=== PATIENT | female | born 1965 | race Caucasian/White ===

== ENCOUNTER 2017-02-28 12:18 | Emergency (ER) | payer SELFPAY ==
[~2017-02-28] VITALS: Ht 152.4 cm; Wt 113.5 kg
[~2017-02-28 12:18] MED LIST: ATEN50TA PO; LEVO100T4 PO; TRAM50TA4 PO; TYL3 PO
[2017-02-28] MEDS ORDERED: ASPI1TAB7 PO (12:23)
[2017-02-28] MEDS ORDERED: SODIUM CHLORIDE 0.9% 1,000 ML IV ONE (12:45)
[2017-02-28] MEDS ORDERED: MECLIZINE HCL 25 MG TABLET PO ONE (12:45)
[2017-02-28] MEDS ORDERED: ONDANSETRON HCL 4 MG/2 ML VIAL IVP ONE (12:45)
[2017-02-28 14:08] VITALS: BP 139/69
== END 2017-02-28 14:28 | disposition home or self-care (01) ==
LOC: EMS 12:20
DX: R42 Dizziness and giddiness (principal); I10 Essential (primary) hypertension; Z91.011 Allergy to milk products; Z91.013 Allergy to seafood
CPT/HCPCS: 96361; 96374; 99284; J2405; J7030

== ENCOUNTER 2017-12-31 06:19 | Emergency (ER) | payer OTHER ==
[~2017-12-31] VITALS: Ht 154.9 cm; Wt 104.5 kg
[~2017-12-31 06:19] MED LIST changes: +ASPI-988 PO; -TRAM50TA4 PO; -TYL3 PO
[2017-12-31] MEDS ORDERED: LEVO112T4 PO (06:35)
[2017-12-31] MEDS ORDERED: LISI-661 PO (06:35)
[2017-12-31] MEDS ORDERED: MECLIZINE HCL 25 MG TABLET PO ONE (07:00)
[2017-12-31] MEDS ORDERED: SODIUM CHLORIDE 0.9% 1,000 ML IV ONE (07:00)
[2017-12-31] MEDS ORDERED: ONDANSETRON HCL 4 MG/2 ML VIAL IVP ONE (07:00)
[2017-12-31 07:34] LABS: BASOPHILS % (AUTO) 0.6 % (0.0-2.0); EOSINOPHILS % (AUTO) 1.3 % (1.0-6.0); HEMATOCRIT 37.4 % (36-46); HEMOGLOBIN 12.5 g/dL (12.0-16.0); LYMPHOCYTES # (AUTO) 1.1 K/uL (1.0-4.8); LYMPHOCYTES % (AUTO) 16.3 % (22.0-44.0); MEAN CORPUSCULAR HGB CONC 33.3 G/dL (31.0-37.0); MEAN CORPUSCULAR VOLUME 93 fL (80-100); MONOCYTES # (AUTO) 0.4 K/uL (0.1-1.0); MONOCYTES % (AUTO) 5.2 % (2.0-9.0); NEUTROPHILS # (AUTO) 5.4 K/uL (1.8-7.7); NEUTROPHILS % (AUTO) 76.6 % (40.0-70.0); PLATELET COUNT (AUTO) 124 K/uL (150-450); RED BLOOD CELL COUNT(AUTO) 4.03 MIL/uL (4.00-5.20); RED CELL DISTRIBUTION WIDTH 12.9 % (11.5-14.5)
[2017-12-31 07:46] LABS: ANION GAP 12 mmol/L (8-16); CARBON DIOXIDE 24 mmol/L (22-29); CHLORIDE 107 mmol/L (98-107); CREATININE 0.67 mg/dL (0.60-1.30); GLOMERULAR FILTR. RATE CALC > 60 mL/min (>60); GLUCOSE,RANDOM 173 mg/dL (70-110); SODIUM SERUM 143 mmol/L (136-145); UREA NITROGEN, BLOOD 15 mg/dL (7-18)
[2017-12-31 08:05] VITALS: BP 138/63
[2017-12-31] MEDS ORDERED: DiphenhydrAMINE HCL 50 MG/ML VIAL IVP ONE (08:30)
[2017-12-31] MEDS ORDERED: METOCLOPRAMIDE HCL 5 MG/ML 2 ML VIAL IVP ONE (08:30)
== END 2017-12-31 09:28 | disposition home or self-care (01) ==
LOC: EMS 06:20
DX: R42 Dizziness and giddiness (principal); R11.2 Nausea with vomiting, unspecified; E03.9 Hypothyroidism, unspecified; I10 Essential (primary) hypertension; G43.909 Migraine, unspecified, not intractable, without status migrainosus
CPT/HCPCS: 36415; 80048; 85025; 96361; 96374; 96375; 99285; J1200; J2405; J2765; J7030

== ENCOUNTER 2018-10-27 20:49 | Emergency (ER) | payer OTHER ==
[~2018-10-27] VITALS: Ht 154.9 cm; Wt 111.4 kg
[~2018-10-27 20:49] MED LIST changes: -ASPI-988 PO; -ATEN50TA PO; -LEVO100T4 PO; +LEVO112T4 PO; +LISI-661 PO
[2018-10-27 21:43] LABS: BASOPHILS % (AUTO) 0.7 % (0.0-2.0); EOSINOPHILS % (AUTO) 1.7 % (1.0-6.0); HEMATOCRIT 37.1 % (36-46); HEMOGLOBIN 12.4 g/dL (12.0-16.0); LYMPHOCYTES # (AUTO) 2.2 K/uL (1.0-4.8); LYMPHOCYTES % (AUTO) 28.4 % (22.0-44.0); MEAN CORPUSCULAR HGB CONC 33.5 G/dL (31.0-37.0); MEAN CORPUSCULAR VOLUME 92 fL (80-100); MONOCYTES # (AUTO) 0.6 K/uL (0.1-1.0); MONOCYTES % (AUTO) 7.3 % (2.0-9.0); NEUTROPHILS # (AUTO) 4.7 K/uL (1.8-7.7); NEUTROPHILS % (AUTO) 61.9 % (40.0-70.0); PLATELET COUNT (AUTO) 166 K/uL (150-450); RED BLOOD CELL COUNT(AUTO) 4.02 MIL/uL (4.00-5.20); RED CELL DISTRIBUTION WIDTH 13.1 % (11.5-14.5)
[2018-10-27 21:47] LABS: ANION GAP 10 mmol/L (8-16); CALCIUM, TOTAL 10.3 mg/dL (8.8-10.5); CARBON DIOXIDE 25 mmol/L (22-29); CHLORIDE 103 mmol/L (98-107); CREATININE 0.59 mg/dL (0.60-1.30); GLOMERULAR FILTR. RATE CALC > 60 mL/min (>60); GLUCOSE,RANDOM 173 mg/dL (70-110); POTASSIUM 4.2 mmol/L (3.5-5.1); SODIUM SERUM 138 mmol/L (136-145); UREA NITROGEN, BLOOD 19 mg/dL (7-18)
[2018-10-27 21:49] LABS: ALANINE AMINOTRANSFERASE 29 U/L (12-78); ALBUMIN 3.3 g/dL (3.4-5.0); ALKALINE PHOSPHATASE 128 U/L (46-116); ASPARTATE AMINOTRANSFERASE 16 U/L (15-37); BILIRUBIN,TOTAL 0.2 mg/dL (0.1-1.0); TOTAL PROTEIN, SERUM 7.4 g/dL (6.4-8.2)
[2018-10-27] MEDS ORDERED: KETOROLAC TROMETHAMINE 30 MG/ML VIAL IVP ONE (22:30)
[2018-10-27] MEDS ORDERED: KETOROLAC TROMETHAMINE 60 MG/2 ML VIAL IM ONE (22:45)
[2018-10-27 23:11] VITALS: BP 162/84
== END 2018-10-27 23:16 | disposition home or self-care (01) ==
LOC: EMS 20:49
DX: R07.89 Other chest pain (principal); I10 Essential (primary) hypertension; E03.9 Hypothyroidism, unspecified; G43.909 Migraine, unspecified, not intractable, without status migrainosus; Z91.011 Allergy to milk products; Z91.013 Allergy to seafood; Z79.899 Other long term (current) drug therapy
CPT/HCPCS: 36415; 71045; 80053; 84484; 85025; 93005; 96372; 99284; J1885

== ENCOUNTER 2019-08-20 10:41 | Emergency (ER) | payer OTHER ==
[~2019-08-20] VITALS: Ht 154.9 cm; Wt 110.5 kg
[2019-08-20] MEDS ORDERED: ONDANSETRON HCL 4 MG/2 ML VIAL IM ONE (11:45)
[2019-08-20] MEDS ORDERED: MECLIZINE HCL 25 MG TABLET PO ONE (11:45)
[2019-08-20 11:53] LABS: BASOPHILS % (AUTO) 0.5 % (0.0-2.0); EOSINOPHILS % (AUTO) 1.4 % (1.0-6.0); HEMOGLOBIN 13.3 g/dL (12.0-16.0); LYMPHOCYTES # (AUTO) 1.5 K/uL (1.0-4.8); LYMPHOCYTES % (AUTO) 21.9 % (22.0-44.0); MEAN CORPUSCULAR HEMOGLOBIN 31.2 pg (26.0-34.0); MEAN CORPUSCULAR HGB CONC 33.2 G/dL (31.0-37.0); MEAN CORPUSCULAR VOLUME 94 fL (80-100); MONOCYTES # (AUTO) 0.4 K/uL (0.1-1.0); MONOCYTES % (AUTO) 5.9 % (2.0-9.0); NEUTROPHILS # (AUTO) 4.7 K/uL (1.8-7.7); NEUTROPHILS % (AUTO) 70.3 % (40.0-70.0); PLATELET COUNT (AUTO) 157 K/uL (150-450); RED BLOOD CELL COUNT(AUTO) 4.24 MIL/uL (4.00-5.20); RED CELL DISTRIBUTION WIDTH 13.2 % (11.5-14.5)
[2019-08-20 12:10] LABS: ANION GAP 6 mmol/L (8-16); CALCIUM, TOTAL 11.4 mg/dL (8.8-10.5); CARBON DIOXIDE 28 mmol/L (22-29); CHLORIDE 103 mmol/L (98-107); CREATININE 0.64 mg/dL (0.60-1.30); GLOMERULAR FILTR. RATE CALC > 60 mL/min (>60); GLUCOSE,RANDOM 155 mg/dL (70-110); POTASSIUM 4.5 mmol/L (3.5-5.1); SODIUM SERUM 137 mmol/L (136-145); UREA NITROGEN, BLOOD 19 mg/dL (7-18)
[2019-08-20 12:16] LABS: ALANINE AMINOTRANSFERASE 29 U/L (12-78); ALBUMIN 3.7 g/dL (3.4-5.0); ALKALINE PHOSPHATASE 127 U/L (46-116); ASPARTATE AMINOTRANSFERASE 13 U/L (15-37); BILIRUBIN,TOTAL 0.3 mg/dL (0.1-1.0); THYROID STIMULATING HORMONE 2.36 uIU/mL (0.36-3.74); TOTAL PROTEIN, SERUM 7.6 g/dL (6.4-8.2)
[2019-08-20 13:30] LABS: GLUCOSE,POINT OF CARE 130 MG/DL (70-110)
[2019-08-20 13:40] LABS: BILIRUBIN,URINE NEGATIVE (NEGATIVE); GLUCOSE, URINE (UA) NEGATIVE (NEGATIVE); KETONES,URINE NEGATIVE (NEGATIVE); LEUKOCYTE ESTERASE ,URINE NEGATIVE (NEGATIVE); NITRATE,URINE NEGATIVE (NEGATIVE); OCCULT BLOOD,URINE NEGATIVE (NEGATIVE); PH,URINE 7.5 (5.0-8.0); PROTEIN,URINE NEGATIVE (NEGATIVE)
[2019-08-20 13:41] LABS: APPEARANCE,URINE HAZY (CLEAR)
[2019-08-20 15:11] VITALS: BP 140/68
== END 2019-08-20 15:17 | disposition home or self-care (01) ==
LOC: EMS 10:42
DX: R11.2 Nausea with vomiting, unspecified (principal); R42 Dizziness and giddiness; E03.9 Hypothyroidism, unspecified; I10 Essential (primary) hypertension; G43.909 Migraine, unspecified, not intractable, without status migrainosus; Z79.899 Other long term (current) drug therapy; Z91.011 Allergy to milk products; Z91.013 Allergy to seafood
CPT/HCPCS: 36415; 80053; 81003; 82962; 84443; 85025; 93005; 96372; 99284; J2405; 82948

== ENCOUNTER 2021-10-02 09:07 | Emergency (ER) | payer OTHER ==
[~2021-10-02] VITALS: Ht 154.9 cm; Wt 106.8 kg
[~2021-10-02 09:07] MED LIST changes: -LISI-661 PO; +LISI-893 PO
[2021-10-02] MEDS ORDERED: KETOROLAC TROMETHAMINE 30 MG/ML VIAL IM ONE (09:30)
[2021-10-02] MEDS ORDERED: LIDOCAINE 5% TRANSDERMAL PATCH TD ONE (09:30)
[2021-10-02] MEDS ORDERED: OxyCODONE HCL/ACETAMINOPHEN 5-325 MG TABLET PO ONE (10:30)
[2021-10-02 11:33] VITALS: BP 159/79
== END 2021-10-02 12:01 | disposition home or self-care (01) ==
LOC: EMS 09:09
DX: M54.42 Lumbago with sciatica, left side (principal); E11.9 Type 2 diabetes mellitus without complications; I10 Essential (primary) hypertension; E03.9 Hypothyroidism, unspecified; G43.909 Migraine, unspecified, not intractable, without status migrainosus
CPT/HCPCS: 82962; 96372; 99283; J1885

== ENCOUNTER 2022-07-26 00:03 | Emergency (ER) | payer OTHER ==
[~2022-07-26] VITALS: Ht 154.9 cm; Wt 106.8 kg
[2022-07-26] MEDS ORDERED: AMLO-257 PO (00:17)
[2022-07-26] MEDS ORDERED: ATOR40TA28 PO (00:17)
[2022-07-26] MEDS ORDERED: METF-1211 PO (00:17)
[2022-07-26 00:21] LABS: GLUCOSE,POINT OF CARE 223 MG/DL (70-110)
[2022-07-26] MEDS ORDERED: IBUPROFEN 600 MG TABLET PO ONE (02:00)
[2022-07-26 02:45] LABS: BASOPHILS % (AUTO) 0.5 % (0.0-2.0); EOSINOPHILS % (AUTO) 2.6 % (1.0-6.0); HEMATOCRIT 37.8 % (36-46); HEMOGLOBIN 12.5 g/dL (12.0-16.0); LYMPHOCYTES # (AUTO) 1.2 K/uL (1.0-4.8); LYMPHOCYTES % (AUTO) 13.9 % (22.0-44.0); MEAN CORPUSCULAR HEMOGLOBIN 29.6 pg (26.0-34.0); MEAN CORPUSCULAR VOLUME 90 fL (80-100); MONOCYTES # (AUTO) 0.6 K/uL (0.1-1.0); MONOCYTES % (AUTO) 6.7 % (2.0-9.0); NEUTROPHILS # (AUTO) 6.4 K/uL (1.8-7.7); NEUTROPHILS % (AUTO) 76.3 % (40.0-70.0); PLATELET COUNT (AUTO) 167 K/uL (150-450); RED BLOOD CELL COUNT(AUTO) 4.21 MIL/uL (4.00-5.20); RED CELL DISTRIBUTION WIDTH 13.8 % (11.5-14.5)
[2022-07-26 03:05] LABS: ANION GAP 6 mmol/L (8-16); CALCIUM, TOTAL 8.9 mg/dL (8.8-10.5); CARBON DIOXIDE 31 mmol/L (22-29); CHLORIDE 100 mmol/L (98-107); GLOMERULAR FILTR. RATE CALC > 60 mL/min (>60); GLUCOSE,RANDOM 185 mg/dL (70-110); SODIUM SERUM 137 mmol/L (136-145); UREA NITROGEN, BLOOD 22 mg/dL (7-18)
[2022-07-26 03:11] LABS: ALANINE AMINOTRANSFERASE 28 U/L (12-78); ALBUMIN 3.7 g/dL (3.4-5.0); ALKALINE PHOSPHATASE 115 U/L (46-116); ASPARTATE AMINOTRANSFERASE 14 U/L (15-37); BILIRUBIN,TOTAL 0.3 mg/dL (0.1-1.0); C-REACTIVE PROTEIN QUANT 1.47 mg/dL (0.00-0.30); TOTAL PROTEIN, SERUM 7.7 g/dL (6.4-8.2)
[2022-07-26 03:56] LABS: ERYTHROCYTE SEDIMENTATION RATE 23 MM/HR (0-20)
[2022-07-26 04:12] VITALS: BP 158/78
[2022-07-26] MEDS ORDERED: IBUP-2070 PO (04:14)
[2022-07-26] MEDS ORDERED: LISI40TA9 PO (19:56)
[2022-07-26] MEDS ORDERED: ASPI-1444 PO (19:56)
[2022-07-26] MEDS ORDERED: PLEC3TAB2 PO (19:56)
== END 2022-07-26 04:36 | disposition home or self-care (01) ==
LOC: EMS 00:05
DX: S86.111A Strain of other muscle(s) and tendon(s) of posterior muscle group at lower leg level, right leg, initial encounter (principal); S86.011A Strain of right Achilles tendon, initial encounter; E11.9 Type 2 diabetes mellitus without complications; I10 Essential (primary) hypertension; E03.9 Hypothyroidism, unspecified; G43.909 Migraine, unspecified, not intractable, without status migrainosus; Z86.69 Personal history of other diseases of the nervous system and sense organs; Z98.890 Other specified postprocedural states; Z91.011 Allergy to milk products; Z91.013 Allergy to seafood; X58.XXXA Exposure to other specified factors, initial encounter; Y93.89 Activity, other specified; Y92.89 Other specified places as the place of occurrence of the external cause; Y99.8 Other external cause status
CPT/HCPCS: 80053; 82962; 85025; 85379; 85651; 86140; 87040; 99284